=== PATIENT | male | born 1990 | race Caucasian/White ===

== ENCOUNTER 2016-08-12 19:28 | Emergency (ER) | payer OTHER ==
[2016-08-12] MEDS ORDERED: GI COCKTAIL 50ML BTL(HYOSCYAMINE/MAALOX/LIDOCAINE VISCOUS)(1:3:1) As Ordered ONE (20:44)
[2016-08-12] MEDS ORDERED: ASPIRIN 81 MG CHEW TABLET As Ordered ONE (20:59)
[2016-08-12 21:10] LABS: BASO % 0.6 % (0.0-1.0); EOS # 0.2 K/mm3 (0.0-0.50); EOS % 2.7 % (0.0-3.0); LARGE UNSTAINED CELL # 0.1 K/mm3 (0.0-0.4); LARGE UNSTAINED CELL % 2.2 % (0.0-4.0); LYMPH # 2.6 K/mm3 (1.5-6.5); LYMPH % 43.3 % (24.0-44.0); MEAN CORPUSCULAR HEMOGLOBIN 30.6 pg (27.0-33.0); MEAN CORPUSCULAR HGB CONC 32.6 g/dl (32.0-36.5); MEAN CORPUSCULAR VOLUME 93.8 fl (80.0-96.0); MONO # 0.4 K/mm3 (0.0-0.8); MONO % 6.8 % (0.0-5.0); NEUTROPHILS # 2.6 K/mm3 (1.8-7.7); NEUTROPHILS % 44.5 % (36.0-66.0); PLATELET COUNT, AUTOMATED 251 k/mm3 (150-450); RED CELL DISTRIBUTION WIDTH 12.2 % (11.5-14.5); WHITE BLOOD COUNT 5.8 K/mm3 (4.0-10.0)
[2016-08-12 21:37] LABS: ANION GAP 6 MEQ/L (8-16); BLOOD UREA NITROGEN 13 MG/DL (7-18); CARBON DIOXIDE LEVEL 31 MEQ/L (21-32); CHLORIDE LEVEL 105 MEQ/L (98-107); CREATININE FOR GFR 1.13 MG/DL (0.70-1.30); GLOMERULAR FILTRATION RATE > 60.0 (>60); GLUCOSE, FASTING 98 MG/DL (70-105); POTASSIUM SERUM 3.7 MEQ/L (3.5-5.1); SODIUM LEVEL 142 MEQ/L (136-145)
--- NOTE | 2016-08-12 22:44 | EDDOCDS ---
Physician Documentation [facility] Name: Isidro Nugent Age: 26 yrs Sex: Male : 1990 Arrival Date: 08/12/2016 Time: 19:28 Bed Radiology Private MD: Other - Complete Info On Cds Disposition: 08/12/16 22:23 Discharged to Home/Self Care. Impression: Chest pain, unspecified. - Condition is Stable. - Discharge Instructions: Nonspecific Chest Pain. - Medication Reconciliation, Local Pharmacy Hours form. - [facility]: [facility]; When: Call to arrange an appointment; Reason: Continuance of care. - Problem is new. - Symptoms have improved. Historical: - Allergies: Septra; - Home Meds: 1. none - PMHx: none; - PSHx: none; Tonsillectomy; - Social history: Smoking status: Patient states was never smoker of tobacco. No barriers to communication noted. - Family history: Not pertinent. - : The pt / caregiver states he / she is not on anticoagulants. Home medication list is obtained from the patient. - Exposure Risk Screening:: None identified. Vital Signs: 08/12 19:30 BP 136 / 73; Pulse 83; Resp 18 S; Temp 98.0(O); Pulse Ox 100% on R/A; Weight 92.99 kg / gr2 205.01 lbs (R); Height 6 ft. 3 in. (190.50 cm) (R); Pain 2/10; 22:35 BP 114 / 68; Pulse 58; Resp 16; Temp 98.6; Pulse Ox 100% ; ajs 19:30 Body Mass Index 25.62 (92.99 kg, 190.50 cm) gr2 MDM: 19:49 Chest, 2 View (pa\E\lat) Ordered. EDMS 20:30 Aspirin Chewable Tablet 324 mg PO once ordered. fg 20:30 Photoengraving Apprentice/Pulse Ox/q 30 min VS ordered. fg 20:30 IV Saline Lock ordered. fg 20:30 Rhythm Strip to chart ordered. fg 20:30 Undress patient appropriately for examination ordered. fg 20:30 GI Cocktail - (Alum-Mag Hydroxide-Simeth 30 ml, Lidocaine 10 ml, Hyoscyamine 10 ml) PO fg once; Pre-mixed 50mL unit dose ordered. 20:30 Basic Metabolic Profile Ordered. EDMS 20:30 CBC with Diff Ordered. EDMS 20:30 Cardiac Injury Profile Ordered. EDMS 20:30 Troponin Ordered. EDMS 20:31 ECG WITH READING ER PHYS+CARDIAG ordered. EDMS 21:56 Financial registration complete. [email or web address] 22:16 [facility] Payment Agreement was scanned into [employer] and attached to record. [email or web address] Administered Medications: 20:54 Drug: GI Cocktail - (Alum-Mag Hydroxide-Simeth Suspension 225 mg-200 mg-25 mg/5 mL 30 ko2 ml, Lidocaine Liquid 2 % 10 ml, Hyoscyamine Liquid 10 ml) Route: PO; 21:01 Drug: Aspirin 324 mg [aspirin 81 mg chewable tablet (4 tabs)] Route: PO; ko2 Signatures: Dispatcher MedHost EDMS Dayne Barakat LPN LPN rw1 Whit CamachoRN RN Zena Day RN RN ko2 Christie Deal MD MD fg Sorenson, Kimberly, Reg Reg ks16 The chart was reviewed and I authenticate all verbal orders and agree with the evaluation and treatment provided.Attachments: 22:16 [facility] Payment Agreement [email or web address] MTDD
--- NOTE | 2016-08-12 22:44 | EDDOCDS ---
Nurse's Notes [facility] Name: Isidro Nugent Age: 26 yrs Sex: Male : 1990 Arrival Date: 08/12/2016 Time: 19:28 Bed Radiology Private MD: Other - Complete Info On Cds Diagnosis: Chest pain, unspecified Presentation: 08/12 19:38 Presenting complaint: Patient states: On Thursday I was eating and during that time felt cj like I was suffocating, not like I was choking, I ignored it at first, but this feeling of suffocation and chest pressure keep coming and going, seems to be at random. Aspirin was not taken prior to arrival. Adult Sepsis Screening: The patient does not have new or worsening altered mentation. Patient's respiratory rate is less than 22. Systolic blood pressure is greater than 100. Patient has a qSOFA score of 0- Negative Sepsis Screen. Suicide/Homicide risk assessment- the patient denies having any suicidal and/or homicidal ideations and does not present with any other emotional, behavioral or mental health complaints. 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 Transition of care: patient was not received from another setting of care. 19:38 Acuity: ISABELLA Level 3 [facility] 19:38 Method Of Arrival: Walkin/Carried/Asstd [facility] Triage Assessment: 19:41 General: Appears in no apparent distress, comfortable, Behavior is appropriate for age, [facility] cooperative. Pain: Location: xyphoid area and mid-sternal area Pain currently is 5 out of 10 on a pain scale. HIV screening NA for this visit active duty . Cardiovascular: Chest pain is described as Pain is 5 out of 10 on a pain scale. radiates Does not radiate. episodes are intermittent began two days. Respiratory: Airway is patent Respiratory effort is even, unlabored, Respiratory pattern is regular, symmetrical, Breath sounds are diminished in right posterior upper lobe and right posterior middle lobe. GI: Denies diarrhea, nausea, vomiting. Derm: Skin is pink, warm & dry. Historical: - Allergies: Septra; - Home Meds: 1. none - PMHx: none; - PSHx: none; Tonsillectomy; - Social history: Smoking status: Patient states was never smoker of tobacco. No barriers to communication noted. - Family history: Not pertinent. - : The pt / caregiver states he / she is not on anticoagulants. Home medication list is obtained from the patient. - Exposure Risk Screening:: None identified. Screenin:02 Screening information is obtained from the patient. Fall risk: No risks identified. ko2 Assistance ADL's: requires no assistance with activities of daily living. Abuse/DV Screen: The patient / caregiver reports he/she is: not in a situation that causes fear, pain or injury. Nutritional screening: No deficits noted. Advance Directives: Currently, there is no health care proxy. There is no active DNR order. There is no living will. There is no Power of Key Ringer. home support is adequate. Assessment: 20:55 General: Appears in no apparent distress, Behavior is appropriate for age, cooperative. ko2 Pain: Location: chest. Neurological: Level of Consciousness is awake, alert, Oriented to person, place, time. Cardiovascular: Heart tones S1 S2 present. Respiratory: Airway is patent Respiratory effort is even, unlabored, Respiratory pattern is regular, symmetrical. Derm: Skin is normal. 21:01 General: Dr. Deal notified that there is no head rose grower in pts room. Dr. Deal ko2 states that she will discontinue the order. 22:03 General: Appears in no apparent distress, Behavior is appropriate for age, cooperative. ko2 Neurological: Level of Consciousness is awake, alert. Respiratory: Airway is patent. Derm: Skin is normal. 22:42 Reassessment: Patient appears in no apparent distress at this time. Patient denies pain rw1 at this time. Patient states feeling better. Patient states symptoms have improved. Vital Signs: 19:30 BP 136 / 73; Pulse 83; Resp 18 S; Temp 98.0(O); Pulse Ox 100% on R/A; Weight 92.99 kg gr2 (R); Height 6 ft. 3 in. (190.50 cm) (R); Pain 2/10; 22:35 BP 114 / 68; Pulse 58; Resp 16; Temp 98.6; Pulse Ox 100% ; ajs 19:30 Body Mass Index 25.62 (92.99 kg, 190.50 cm) gr2 Vitals: 19:30 Log In Time: August 12, 2016 at 19:30. gr2 ED Course: 19:29 Patient visited by Lexa Leslie. gr2 19:29 Other - Complete Info On Cds is Private Physician. gr2 19:29 Patient moved to Waiting gr2 19:31 Patient visited by Lexa Leslie. gr2 19:31 Patient moved to Pre RCE gr2 19:40 Triage Initiated [facility] 20:07 Whit Camacho,RN is Primary Nurse. ar3 20:07 Patient moved to Triage 1 ar3 20:13 Christie Deal MD is Attending Physician. fg 20:13 Patient moved to I fg 20:15 Patient visited by Christie Deal MD. fg 20:54 Troponin Sent. ko2 20:54 Cardiac Injury Profile Sent. ko2 20:54 CBC with Diff Sent. ko2 20:54 Basic Metabolic Profile Sent. ko2 21:00 Patient moved to Radiology jose de jesus 21:03 EKG done. (by ED staff). Reviewed by Christie Deal MD. jmv 21:04 Patient visited by Orville Shoemaker PCA. jmv 21:04 The patient / caregiver is instructed regarding the plan of care and ED course. ko2 21:04 Inserted saline lock: 20 gauge in right antecubital area and blood collected. The ko2 patient tolerated the procedure well. 22:16 [facility] Payment Agreement was scanned into [employer] and attached to record. ks16 22:23 [facility] is Referral Physician. fg 22:35 Patient visited by Chary Tiwari. ajs 22:42 Discontinued IV lock intact, bleeding controlled, pressure dressing applied, No rw1 redness/swelling at site. No procedures done that require assistance. Administered Medications: 20:54 Drug: GI Cocktail - (Alum-Mag Hydroxide-Simeth Suspension 225 mg-200 mg-25 mg/5 mL 30 ko2 ml, Lidocaine Liquid 2 % 10 ml, Hyoscyamine Liquid 10 ml) Route: PO; 21:01 Drug: Aspirin 324 mg [aspirin 81 mg chewable tablet (4 tabs)] Route: PO; ko2 Order Results: Lab Order: Basic Metabolic Profile; SPEC'M 08/12/16 20:50 Test: GLUCOSE, FASTING; Value: 98; Range: 70-105; Units: MG/DL; Status: F Test: BLOOD UREA NITROGEN; Value: 13; Range: 7-18; Units: MG/DL; Status: F Test: CREATININE FOR GFR; Value: 1.13; Range: 0.70-1.30; Units: MG/DL; Status: F Test: GLOMERULAR FILTRATION RATE; Value: > 60.0; Range: >60; Status: F Test: SODIUM LEVEL; Value: 142; Range: 136-145; Units: MEQ/L; Status: F Test: POTASSIUM SERUM; Value: 3.7; Range: 3.5-5.1; Units: MEQ/L; Status: F Test: CHLORIDE LEVEL; Value: 105; Range: 98-107; Units: MEQ/L; Status: F Test: CARBON DIOXIDE LEVEL; Value: 31; Range: 21-32; Units: MEQ/L; Status: F Test: ANION GAP; Value: 6; Range: 8-16; Abnormal: Below low normal; Units: MEQ/L; Status: F Test: CALCIUM LEVEL; Value: 9.0; Range: 8.5-10.1; Units: MG/DL; Status: F Test Note: ; Units are mL/min/1.73 m2 Chronic Kidney Disease Staging per NKF: Stage I & II GFR >=60 Normal to Mildly Decreased Stage III GFR 30-59 Moderately Decreased Stage IV GFR 15-29 Severely Decreased Stage V GFR <15 Very Little GFR Left ESRD GFR <15 on IT BUSINESS PROCESS ARCHITECT Lab Order: CBC with Diff; SPEC'M 08/12/16 20:50 Test: WHITE BLOOD COUNT; Value: 5.8; Range: 4.0-10.0; Units: K/mm3; Status: F Test: RED BLOOD COUNT; Value: 4.60; Range: 4.30-6.10; Units: M/mm3; Status: F Test: HEMOGLOBIN; Value: 14.1; Range: 14.0-18.0; Units: g/dl; Status: F Test: HEMATOCRIT; Value: 43.1; Range: 42.0-52.0; Units: %; Status: F Test: MEAN CORPUSCULAR VOLUME; Value: 93.8; Range: 80.0-96.0; Units: fl; Status: F Test: MEAN CORPUSCULAR HEMOGLOBIN; Value: 30.6; Range: 27.0-33.0; Units: pg; Status: F Test: MEAN CORPUSCULAR HGB CONC; Value: 32.6; Range: 32.0-36.5; Units: g/dl; Status: F Test: RED CELL DISTRIBUTION WIDTH; Value: 12.2; Range: 11.5-14.5; Units: %; Status: F Test: PLATELET COUNT, AUTOMATED; Value: 251; Range: 150-450; Units: k/mm3; Status: F Test: NEUTROPHILS %; Value: 44.5; Range: 36.0-66.0; Units: %; Status: F Test: LYMPH %; Value: 43.3; Range: 24.0-44.0; Units: %; Status: F Test: MONO %; Value: 6.8; Range: 0.0-5.0; Abnormal: Above high normal; Units: %; Status: F Test: EOS %; Value: 2.7; Range: 0.0-3.0; Units: %; Status: F Test: BASO %; Value: 0.6; Range: 0.0-1.0; Units: %; Status: F Test: LARGE UNSTAINED CELL %; Value: 2.2; Range: 0.0-4.0; Units: %; Status: F Test: NEUTROPHILS #; Value: 2.6; Range: 1.8-7.7; Units: K/mm3; Status: F Test: LYMPH #; Value: 2.6; Range: 1.5-6.5; Units: K/mm3; Status: F Test: MONO #; Value: 0.4; Range: 0.0-0.8; Units: K/mm3; Status: F Test: EOS #; Value: 0.2; Range: 0.0-0.50; Units: K/mm3; Status: F Test: BASO #; Value: 0.0; Range: 0.0-0.2; Units: K/mm3; Status: F Test: LARGE UNSTAINED CELL #; Value: 0.1; Range: 0.0-0.4; Units: K/mm3; Status: F Lab Order: Cardiac Injury Profile; SPEC'M 08/12/16 20:50 Test: CPK CREATINE PHOSPHOKINASE; Value: 789; Range: 39-308; Abnormal: Above high normal; Units: U/L; Status: F Test: CK-MB VALUE MASS; Value: 1.2; Range: 0.0-3.6; Units: NG/ML; Status: F Test: MB/CK RELATIVE INDEX; Value: 0.15; Range: < OR =4; Status: F Test Note: ; DIAGNOSIS CRITERIA MMB ng/ml Relative Index (RI) NON-AMI < or = 5 N/A TORRES ZONE > 5 < or = 4 AMI > 5 > 4 Lab Order: Troponin; SADIA 08/12/16 20:50 Test: TROPONIN I; Value: < 0.02; Range: < 0.10; Units: NG/ML; Status: F Test Note: ; Troponin I Reference Interval for XYverify LOCI: 99th Percentile= 0.00-0.045 ng/ml Risk Stratification: <= 0.10 ng/ml Decreased Risk for Adverse Clinical Events. 0.10-1.50 ng/ml Increased Risk for Adverse Clinical Events. Evaluation of additional criterion and/or repeat testing in 2-6 hours is suggested to rule out myocardial damage. >= 1.50 ng/ml Indicative of Myocardial Injury. Outcome: 22:23 Discharge ordered by Provider. fg 22:42 Discharge Assessment: Patient awake, alert and oriented x 3. No cognitive and/or rw1 functional deficits noted. Patient verbalized understanding of disposition instructions. patient administered narcotics - no. The following High Risk Discharge criteria are identified: None. Discharged to home ambulatory, with friend. Condition: stable Condition: improved. Discharge instructions given to patient, Instructed on discharge instructions, follow up and referral plans. Demonstrated understanding of instructions, Pt was receptive of discharge instructions/ teaching. No special radiology studies were completed. Property sent home with patient. 22:44 Patient left the ED. rw1 Signatures: Carlo Sr Robert, LPN LPN rw1 Lee Ann Martinez, SUBSTATION MECHANIC SUBSTATION MECHANIC ar3 Chary Tiwari JaneRN RN Lexa Eden gr2 Zena Shelley,RN RN Christie Aj MD MD fg Sorenson, Kimberly, Reg Reg ks16 Orville Shoemaker, SUBSTATION MECHANIC SUBSTATION MECHANIC jmv MTDD
--- NOTE | 2016-08-13 07:43 | REP ---
Clinical: Acute shortness of breath . Comparison: None . Technique: PA and lateral. Findings: The mediastinum and cardiac silhouette are normal. The lung anthony are clear and without acute consolidation, effusion, or pneumothorax. The skeletal structures are intact and normal. Impression: 1. No acute cardiopulmonary process. Signed by Arben Bautista MD 08/13/2016 07:35 A
--- NOTE | 2016-08-13 08:53 | ECGEPIP ---
Stationary ECG Study - ED Test Date: 2016-08-12 Pat Name: ANGEL DOUGHERTY Department: Room: - Gender: M Family Engagement Specialist: luis : 1990 Requested By: VENKAT Spicer Order Number: [id number] Reading MD: Marc Alba Measurements Intervals [place] Rate: 58 P: 10 NE: 139 QRS: 33 QRSD: 98 T: 25 QT: 405 QTc: 400 Interpretive Statements SINUS BRADYCARDIA NO PRIORS Electronically Signed On 08-13-2016 8:53:26 EST by Marc Alba
--- NOTE | 2016-08-14 23:45 | EDDOCDS ---
Physician Documentation [facility] Name: Isidro Nugent Age: 26 yrs Sex: Male : 1990 Arrival Date: 08/12/2016 Time: 19:28 Bed Radiology Private MD: Other - Complete Info On Cds Disposition: 08/12/16 22:23 Discharged to Home/Self Care. Impression: Chest pain, unspecified. - Condition is Stable. - Discharge Instructions: Nonspecific Chest Pain. - Medication Reconciliation, Local Pharmacy Hours form. - Follow up[facility]; When: Call to arrange an appointment; Reason: Continuance of care. - Problem is new. - Symptoms have improved. Historical: - Allergies: Septra; - Home Meds: 1. none - PMHx: none; - PSHx: none; Tonsillectomy; - Social history: Smoking status: Patient states was never smoker of tobacco. No barriers to communication noted. - Family history: Not pertinent. - : The pt / caregiver states he / she is not on anticoagulants. Home medication list is obtained from the patient. - Exposure Risk Screening:: None identified. Vital Signs: 08/12 19:30 BP 136 / 73; Pulse 83; Resp 18 S; Temp 98.0(O); Pulse Ox 100% on R/A; Weight 92.99 kg / gr2 205.01 lbs (R); Height 6 ft. 3 in. (190.50 cm) (R); Pain 2/10; 22:35 BP 114 / 68; Pulse 58; Resp 16; Temp 98.6; Pulse Ox 100% ; ajs 19:30 Body Mass Index 25.62 (92.99 kg, 190.50 cm) gr2 MDM: 19:49 Chest, 2 View (pa\E\lat) Ordered. EDMS 20:30 Aspirin Chewable Tablet 324 mg PO once ordered. fg 20:30 Waterproofing Machine Operator/Pulse Ox/q 30 min VS ordered. fg 20:30 IV Saline Lock ordered. fg 20:30 Rhythm Strip to chart ordered. fg 20:30 Undress patient appropriately for examination ordered. fg 20:30 GI Cocktail - (Alum-Mag Hydroxide-Simeth 30 ml, Lidocaine 10 ml, Hyoscyamine 10 ml) PO fg once; Pre-mixed 50mL unit dose ordered. 20:30 Basic Metabolic Profile Ordered. EDMS 20:30 CBC with Diff Ordered. EDMS 20:30 Cardiac Injury Profile Ordered. EDMS 20:30 Troponin Ordered. EDMS 20:31 ECG WITH READING ER PHYS+CARDIAG ordered. EDMS 21:56 Financial registration complete. [email or web address] :16 [facility] Payment Agreement was scanned into [employer] and attached to record. ks16 08/13 11:06 T-Sheet-- Draft Copy was scanned into [employer] and attached to record. gb 11:07 ECG/EKG was scanned into [employer] and attached to record. gb Administered Medications: 08/12 20:54 Drug: GI Cocktail - (Alum-Mag Hydroxide-Simeth Suspension 225 mg-200 mg-25 mg/5 mL 30 ko2 ml, Lidocaine Liquid 2 % 10 ml, Hyoscyamine Liquid 10 ml) Route: PO; 21:01 Drug: Aspirin 324 mg [aspirin 81 mg chewable tablet (4 tabs)] Route: PO; ko2 Signatures: Dispatcher [employer] EDMS Destiny Guillaume, Reg Reg gb Dayne Barakat LPN AUTOMOTIVE STARTER REPAIRER rw1 Whit CamachoRN RN Zena Ferguson RN RN ko2 Christie Deal MD MD fg Sorenson, Kimberly, Reg Reg ks16 The chart was reviewed and I authenticate all verbal orders and agree with the evaluation and treatment provided.Attachments: :16 [facility] Payment Agreement 08/13 11:06 T-Sheet-- Draft Copy gb 11:07 ECG/EKG gb Chart Complete MTDD
--- NOTE | 2016-08-14 23:45 | EDDOCDS ---
Physician Documentation [facility] Name: Isidro Nugent Age: 26 yrs Sex: Male : 1990 Arrival Date: 08/12/2016 Time: 19:28 Bed Radiology Private MD: Other - Complete Info On Cds Disposition: 08/12/16 22:23 Discharged to Home/Self Care. Impression: Chest pain, unspecified. - Condition is Stable. - Discharge Instructions: Nonspecific Chest Pain. - Medication Reconciliation, Local Pharmacy Hours form. - Follow up: [facility]; When: Call to arrange an appointment; Reason: Continuance of care. - Problem is new. - Symptoms have improved. Historical: - Allergies: Septra; - Home Meds: 1. none - PMHx: none; - PSHx: none; Tonsillectomy; - Social history: Smoking status: Patient states was never smoker of tobacco. No barriers to communication noted. - Family history: Not pertinent. - : The pt / caregiver states he / she is not on anticoagulants. Home medication list is obtained from the patient. - Exposure Risk Screening:: None identified. Vital Signs: 08/12 19:30 BP 136 / 73; Pulse 83; Resp 18 S; Temp 98.0(O); Pulse Ox 100% on R/A; Weight 92.99 kg / gr2 205.01 lbs (R); Height 6 ft. 3 in. (190.50 cm) (R); Pain 2/10; 22:35 BP 114 / 68; Pulse 58; Resp 16; Temp 98.6; Pulse Ox 100% ; ajs 19:30 Body Mass Index 25.62 (92.99 kg, 190.50 cm) gr2 MDM: 19:49 Chest, 2 View (pa\E\lat) Ordered. EDMS 20:30 Aspirin Chewable Tablet 324 mg PO once ordered. fg 20:30 Database Coordinator/Pulse Ox/q 30 min VS ordered. fg 20:30 IV Saline Lock ordered. fg 20:30 Rhythm Strip to chart ordered. fg 20:30 Undress patient appropriately for examination ordered. fg 20:30 GI Cocktail - (Alum-Mag Hydroxide-Simeth 30 ml, Lidocaine 10 ml, Hyoscyamine 10 ml) PO fg once; Pre-mixed 50mL unit dose ordered. 20:30 Basic Metabolic Profile Ordered. EDMS 20:30 CBC with Diff Ordered. EDMS 20:30 Cardiac Injury Profile Ordered. EDMS 20:30 Troponin Ordered. EDMS 20:31 ECG WITH READING ER PHYS+CARDIAG ordered. EDMS 21:56 Financial registration complete. [email or web address] :16 [facility] Payment Agreement was scanned into [email or web address] and attached to record. ks16 08/13 11:06 T-Sheet-- Draft Copy was scanned into [employer] and attached to record. gb 11:07 ECG/EKG was scanned into [employer] and attached to record. gb Administered Medications: 08/12 20:54 Drug: GI Cocktail - (Alum-Mag Hydroxide-Simeth Suspension 225 mg-200 mg-25 mg/5 mL 30 ko2 ml, Lidocaine Liquid 2 % 10 ml, Hyoscyamine Liquid 10 ml) Route: PO; 21:01 Drug: Aspirin 324 mg [aspirin 81 mg chewable tablet (4 tabs)] Route: PO; ko2 Signatures: Dispatcher [employer] EDMS Destiny Guillaume, Reg Reg gb Dayne Barakat LPN [employer] TRUCK DRIVER rw1 Whit CamachoRN RN Zena Ferguson RN RN ko2 Christie Deal MD MD fg Sorenson, Kimberly, Reg Reg ks16 The chart was reviewed and I authenticate all verbal orders and agree with the evaluation and treatment provided.Attachments: :16 [facility] Payment Agreement 08/13 11:06 T-Sheet-- Draft Copy gb 11:07 ECG/EKG gb Chart Complete MTDD
--- NOTE | 2016-08-14 23:45 | EDDOCDS ---
Nurse's Notes [facility] Name: Angel Dougherty Age: 26 yrs Sex: Male : 1990 Arrival Date: 08/12/2016 Time: 19:28 Bed Radiology Private MD: Other - Complete Info On Cds Diagnosis: Chest pain, unspecified Presentation: 08/12 19:38 Presenting complaint: Patient states: On Thursday I was eating and during that time felt cj like I was suffocating, not like I was choking, I ignored it at first, but this feeling of suffocation and chest pressure keep coming and going, seems to be at random. Aspirin was not taken prior to arrival. Adult Sepsis Screening: The patient does not have new or worsening altered mentation. Patient's respiratory rate is less than 22. Systolic blood pressure is greater than 100. Patient has a qSOFA score of 0- Negative Sepsis Screen. Suicide/Homicide risk assessment- the patient denies having any suicidal and/or homicidal ideations and does not present with any other emotional, behavioral or mental health complaints. 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 Transition of care: patient was not received from another setting of care. 19:38 Acuity: ISBAELLA Level 3 [facility] 19:38 Method Of Arrival: Walkin/Carried/Asstd [facility] Triage Assessment: 19:41 General: Appears in no apparent distress, comfortable, Behavior is appropriate for age, [facility] cooperative. Pain: Location: xyphoid area and mid-sternal area Pain currently is 5 out of 10 on a pain scale. HIV screening NA for this visit active duty . Cardiovascular: Chest pain is described as Pain is 5 out of 10 on a pain scale. radiates Does not radiate. episodes are intermittent began two days. Respiratory: Airway is patent Respiratory effort is even, unlabored, Respiratory pattern is regular, symmetrical, Breath sounds are diminished in right posterior upper lobe and right posterior middle lobe. GI: Denies diarrhea, nausea, vomiting. Derm: Skin is pink, warm & dry. Historical: - Allergies: Septra; - Home Meds: 1. none - PMHx: none; - PSHx: none; Tonsillectomy; - Social history: Smoking status: Patient states was never smoker of tobacco. No barriers to communication noted. - Family history: Not pertinent. - : The pt / caregiver states he / she is not on anticoagulants. Home medication list is obtained from the patient. - Exposure Risk Screening:: None identified. Screenin:02 Screening information is obtained from the patient. Fall risk: No risks identified. ko2 Assistance ADL's: requires no assistance with activities of daily living. Abuse/DV Screen: The patient / caregiver reports he/she is: not in a situation that causes fear, pain or injury. Nutritional screening: No deficits noted. Advance Directives: Currently, there is no health care proxy. There is no active DNR order. There is no living will. There is no Power of Geophysics Professor. home support is adequate. Assessment: 20:55 General: Appears in no apparent distress, Behavior is appropriate for age, cooperative. ko2 Pain: Location: chest. Neurological: Level of Consciousness is awake, alert, Oriented to person, place, time. Cardiovascular: Heart tones S1 S2 present. Respiratory: Airway is patent Respiratory effort is even, unlabored, Respiratory pattern is regular, symmetrical. Derm: Skin is normal. 21:01 General: Dr. Deal notified that there is no client experience manager in pts room. Dr. Deal ko2 states that she will discontinue the order. 22:03 General: Appears in no apparent distress, Behavior is appropriate for age, cooperative. ko2 Neurological: Level of Consciousness is awake, alert. Respiratory: Airway is patent. Derm: Skin is normal. 22:42 Reassessment: Patient appears in no apparent distress at this time. Patient denies pain rw1 at this time. Patient states feeling better. Patient states symptoms have improved. Vital Signs: 19:30 BP 136 / 73; Pulse 83; Resp 18 S; Temp 98.0(O); Pulse Ox 100% on R/A; Weight 92.99 kg gr2 (R); Height 6 ft. 3 in. (190.50 cm) (R); Pain 2/10; 22:35 BP 114 / 68; Pulse 58; Resp 16; Temp 98.6; Pulse Ox 100% ; ajs 19:30 Body Mass Index 25.62 (92.99 kg, 190.50 cm) gr2 Vitals: 19:30 Log In Time: August 12, 2016 at 19:30. gr2 ED Course: 19:29 Patient visited by Lexa Leslie. gr2 19:29 Other - Complete Info On Cds is Private Physician. gr2 19:29 Patient moved to Waiting gr2 19:31 Patient visited by Lexa Leslie. gr2 19:31 Patient moved to Pre RCE gr2 19:40 Triage Initiated [facility] 20:07 Whit Camacho,RN is Primary Nurse. ar3 20:07 Patient moved to Triage 1 ar3 20:13 Christie Deal MD is Attending Physician. fg 20:13 Patient moved to I fg 20:15 Patient visited by Christie Deal MD. fg 20:54 Troponin Sent. ko2 20:54 Cardiac Injury Profile Sent. ko2 20:54 CBC with Diff Sent. ko2 20:54 Basic Metabolic Profile Sent. ko2 21:00 Patient moved to Radiology jose de jesus 21:03 EKG done. (by ED staff). Reviewed by Christie Deal MD. jmv 21:04 Patient visited by Orville Shoemaker PCA. jmv 21:04 The patient / caregiver is instructed regarding the plan of care and ED course. ko2 21:04 Inserted saline lock: 20 gauge in right antecubital area and blood collected. The ko2 patient tolerated the procedure well. 22:16 [facility] Payment Agreement was scanned into [employer] and attached to record. ks16 22:23 [facility] is Referral Physician. fg 22:35 Patient visited by Chary Tiwari. ajs 22:42 Discontinued IV lock intact, bleeding controlled, pressure dressing applied, No rw1 redness/swelling at site. No procedures done that require assistance. 08/13 08:18 Chest, 2 View (pa\E\lat) Returned. EDMS 09:29 EKG-ADULT Returned. EDMS 11:06 T-Sheet-- Draft Copy was scanned into Power[employer] and attached to record. gb 11:07 ECG/EKG was scanned into Power[employer] and attached to record. gb Administered Medications: 08/12 20:54 Drug: GI Cocktail - (Alum-Mag Hydroxide-Simeth Suspension 225 mg-200 mg-25 mg/5 mL 30 ko2 ml, Lidocaine Liquid 2 % 10 ml, Hyoscyamine Liquid 10 ml) Route: PO; 21:01 Drug: Aspirin 324 mg [aspirin 81 mg chewable tablet (4 tabs)] Route: PO; ko2 Order Results: Lab Order: Basic Metabolic Profile; SPEC'M 08/12/16 20:50 Test: GLUCOSE, FASTING; Value: 98; Range: 70-105; Units: MG/DL; Status: F Test: BLOOD UREA NITROGEN; Value: 13; Range: 7-18; Units: MG/DL; Status: F Test: CREATININE FOR GFR; Value: 1.13; Range: 0.70-1.30; Units: MG/DL; Status: F Test: GLOMERULAR FILTRATION RATE; Value: > 60.0; Range: >60; Status: F Test: SODIUM LEVEL; Value: 142; Range: 136-145; Units: MEQ/L; Status: F Test: POTASSIUM SERUM; Value: 3.7; Range: 3.5-5.1; Units: MEQ/L; Status: F Test: CHLORIDE LEVEL; Value: 105; Range: 98-107; Units: MEQ/L; Status: F Test: CARBON DIOXIDE LEVEL; Value: 31; Range: 21-32; Units: MEQ/L; Status: F Test: ANION GAP; Value: 6; Range: 8-16; Abnormal: Below low normal; Units: MEQ/L; Status: F Test: CALCIUM LEVEL; Value: 9.0; Range: 8.5-10.1; Units: MG/DL; Status: F Test Note: ; Units are mL/min/1.73 m2 Chronic Kidney Disease Staging per NKF: Stage I & II GFR >=60 Normal to Mildly Decreased Stage III GFR 30-59 Moderately Decreased Stage IV GFR 15-29 Severely Decreased Stage V GFR <15 Very Little GFR Left ESRD GFR <15 on MANAGER PROCESS IMPROVEMENT Lab Order: CBC with Diff; SPEC'08/12/16 20:50 Test: WHITE BLOOD COUNT; Value: 5.8; Range: 4.0-10.0; Units: K/mm3; Status: F Test: RED BLOOD COUNT; Value: 4.60; Range: 4.30-6.10; Units: M/mm3; Status: F Test: HEMOGLOBIN; Value: 14.1; Range: 14.0-18.0; Units: g/dl; Status: F Test: HEMATOCRIT; Value: 43.1; Range: 42.0-52.0; Units: %; Status: F Test: MEAN CORPUSCULAR VOLUME; Value: 93.8; Range: 80.0-96.0; Units: fl; Status: F Test: MEAN CORPUSCULAR HEMOGLOBIN; Value: 30.6; Range: 27.0-33.0; Units: pg; Status: F Test: MEAN CORPUSCULAR HGB CONC; Value: 32.6; Range: 32.0-36.5; Units: g/dl; Status: F Test: RED CELL DISTRIBUTION WIDTH; Value: 12.2; Range: 11.5-14.5; Units: %; Status: F Test: PLATELET COUNT, AUTOMATED; Value: 251; Range: 150-450; Units: k/mm3; Status: F Test: NEUTROPHILS %; Value: 44.5; Range: 36.0-66.0; Units: %; Status: F Test: LYMPH %; Value: 43.3; Range: 24.0-44.0; Units: %; Status: F Test: MONO %; Value: 6.8; Range: 0.0-5.0; Abnormal: Above high normal; Units: %; Status: F Test: EOS %; Value: 2.7; Range: 0.0-3.0; Units: %; Status: F Test: BASO %; Value: 0.6; Range: 0.0-1.0; Units: %; Status: F Test: LARGE UNSTAINED CELL %; Value: 2.2; Range: 0.0-4.0; Units: %; Status: F Test: NEUTROPHILS #; Value: 2.6; Range: 1.8-7.7; Units: K/mm3; Status: F Test: LYMPH #; Value: 2.6; Range: 1.5-6.5; Units: K/mm3; Status: F Test: MONO #; Value: 0.4; Range: 0.0-0.8; Units: K/mm3; Status: F Test: EOS #; Value: 0.2; Range: 0.0-0.50; Units: K/mm3; Status: F Test: BASO #; Value: 0.0; Range: 0.0-0.2; Units: K/mm3; Status: F Test: LARGE UNSTAINED CELL #; Value: 0.1; Range: 0.0-0.4; Units: K/mm3; Status: F Lab Order: Cardiac Injury Profile; SPEC'M 08/12/16 20:50 Test: CPK CREATINE PHOSPHOKINASE; Value: 789; Range: 39-308; Abnormal: Above high normal; Units: U/L; Status: F Test: CK-MB VALUE MASS; Value: 1.2; Range: 0.0-3.6; Units: NG/ML; Status: F Test: MB/CK RELATIVE INDEX; Value: 0.15; Range: < OR =4; Status: F Test Note: ; DIAGNOSIS CRITERIA MMB ng/ml Relative Index (RI) NON-AMI < or = 5 N/A TORRES ZONE > 5 < or = 4 AMI > 5 > 4 Lab Order: Troponin; SPEC'M 08/12/16 20:50 Test: TROPONIN I; Value: < 0.02; Range: < 0.10; Units: NG/ML; Status: F Test Note: ; Troponin I Reference Interval for etechies.in LOCI: 99th Percentile= 0.00-0.045 ng/ml Risk Stratification: <= 0.10 ng/ml Decreased Risk for Adverse Clinical Events. 0.10-1.50 ng/ml Increased Risk for Adverse Clinical Events. Evaluation of additional criterion and/or repeat testing in 2-6 hours is suggested to rule out myocardial damage. >= 1.50 ng/ml Indicative of Myocardial Injury. Radiology Order: Chest, 2 View (pa\E\lat) Test: Chest, 2 View (pa\E\lat) REASON FOR EXAMINATION: Shortness of Breath; Clinical: Acute shortness of breath .; ; Comparison: None .; ; Technique: PA and lateral.; ; Findings:; The mediastinum and cardiac silhouette are normal. The lung anthony are clear and; without acute consolidation, effusion, or pneumothorax. The skeletal structures; are intact and normal.; ; Impression:; 1. 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 fg 22:42 Discharge Assessment: Patient awake, alert and oriented x 3. No cognitive and/or rw1 functional deficits noted. Patient verbalized understanding of disposition instructions. patient administered narcotics - no. The following High Risk Discharge criteria are identified: None. Discharged to home ambulatory, with friend. Condition: stable Condition: improved. Discharge instructions given to patient, Instructed on discharge instructions, follow up and referral plans. Demonstrated understanding of instructions, Pt was receptive of discharge instructions/ teaching. No special radiology studies were completed. Property sent home with patient. 22:44 Patient left the ED. rw1 Signatures: Dispatcher [employer] EDMS Carlo Sr Gloria, Reg Reg gb Workman,Dayne,PASSPORT APPLICATION EXAMINER PASSPORT APPLICATION EXAMINER rw1 Lee Ann Martinez, EXPERIMENTAL TECHNICIAN EXPERIMENTAL TECHNICIAN ar3 Chary Tiwari Jane,RN RN Lexa Eden gr2 Zena Shelley,RN RN Christie Aj MD MD fg Sorenson, Kimberly, Reg Reg [id number] Navid, Orville, EXPERIMENTAL TECHNICIAN EXPERIMENTAL TECHNICIAN jmv Chart Complete MTDD
== END 2016-08-12 22:44 | disposition home or self-care (01) ==
LOC: M ED 19:28
DX: R07.9 Chest pain, unspecified (principal); R00.1 Bradycardia, unspecified; R06.02 Shortness of breath; Z88.1 Allergy status to other antibiotic agents